=== PATIENT | female | born 1975 | race Caucasian/White ===

== ENCOUNTER 2021-10-20 09:27 | Outpatient (CLI) | payer OTHER | END 2021-10-20 09:28 | disposition home or self-care (01) | LOC: BICMAMMO 09:27 | PROVIDERS: ATTEND Family Medicine | DX: Z12.31 Encounter for screening mammogram for malignant neoplasm of breast (principal); Z80.3 Family history of malignant neoplasm of breast | CPT/HCPCS: 77063; 77067 ==